=== PATIENT | female | born 2000 | race African-American/Black ===

== ENCOUNTER 2019-11-24 00:15 | Emergency (ER) | payer OTHER ==
[~2019-11-24] VITALS: Ht 162.6 cm; Wt 59.0 kg
[2019-11-24 00:40] VITALS: BP 123/74
[2019-11-24] MEDS ORDERED: predniSONE 10 MG TABLET PO ONE (01:00)
[2019-11-24] MEDS ORDERED: predniSONE 10 MG TABLET ONE (01:01)
[2019-11-24] MEDS ORDERED: PRED20TA PO (01:01)
--- NOTE | 2019-11-24 01:01 | PHYS DOC ---
Past History Past Medical History: No Pertinent History Past Surgical History: No Surgical History Smoking: Non-smoker Alcohol Use: None Drug Use: None Adult General Chief Complaint Chief Complaint: SKIN RASH/ABSCESS [facility] HPI 19-year-old female presents with 3 day history of intermittent papules that have been appearing on her body. They are not pruritic. She first noticed them 3 days ago and she has had an increasing number. On her bilateral upper extremities, back, abdomen, and hands. Patient denies any new exposures except for a new hair care product. No new furniture, pets, or reason for insect bites. She has no known allergies. She denies fever or chills Review of Systems Review of Systems Constitutional: Denies fever or chills [] Eyes: Denies change in visual acuity, redness, or eye pain [] HENT: Denies nasal congestion or sore throat [] Respiratory: Denies cough or shortness of breath [] Cardiovascular: No additional information not addressed in HPI [] GI: Denies abdominal pain, nausea, vomiting, bloody stools or diarrhea [] : Denies dysuria or hematuria [] Musculoskeletal: Denies back pain or joint pain [] Integument: Rash[] Neurologic: Denies headache, focal weakness or sensory changes [] Endocrine: Denies polyuria or polydipsia [] All other systems were reviewed and found to be within normal limits, except as documented in this note. Allergies Allergies Allergies Coded Allergies Type Severity Reaction Last Updated Verified No Known Drug Allergies 04/11/15 No Physical Exam Physical Exam Constitutional: Well developed, well nourished, no acute distress, non-toxic appearance. [] HENT: Normocephalic, atraumatic, bilateral external ears normal, oropharynx mo ist, no oral exudates, nose normal. [] Eyes: PERRLA, EOMI, conjunctiva normal, no discharge. [] Neck: Normal range of motion, no tenderness, supple, no stridor. [] Cardiovascular:Heart rate regular rhythm, no murmur [] Lungs & Thorax: Bilateral breath sounds clear to auscultation [] Abdomen: Bowel sounds normal, soft, no tenderness, no masses, no pulsatile masses. [] Skin: Scattered papules that look like small urticaria on the bilateral upper extremities, hands, upper back, and upper abdomen.[] Back: No tenderness, no CVA tenderness. [] Extremities: No tenderness, no cyanosis, no clubbing, ROM intact, no edema. [] Neurologic: Alert and oriented X 3, normal motor function, normal sensory fun ction, no focal deficits noted. [] Psychologic: Affect normal, judgement normal, mood normal. [] EKG EKG [] Radiology/Procedures Radiology/Procedures [] Course & Med Decision Making Course & Med Decision Making Pertinent Labs and Imaging studies reviewed. (See chart for details) Patient appears to be having allergic reaction. I will treat her with prednisone for 5 days. We will give the first dose in the ED. She can take Benadryl as needed for itching. She is stable for discharge at this time. [] Dragon Disclaimer Dragon Disclaimer This electronic medical record was generated, in whole or in part, using a voice recognition dictation system. Departure Departure: Impression: Primary Impression: Allergic reaction to chemical substance Disposition: HOME, SELF-CARE Condition: STABLE Referrals: PCP,UNKNOWN (PCP) Patient Instructions: Drug Allergy, [id number] Scripts Prednisone (PREDNISONE) 20 Mg Tablet 2 TAB PO DAILY for allergic reaction for 4 Days, #8 TAB Prov: DARIANA VARGAS DO 11/24/19 Problem Qualifiers Primary Impression: Allergic reaction to chemical substance Encounter type: initial encounter Injury intent: accidental or unintentional Qualified Codes: T65.91XA - Toxic effect of unspecified substance, accidental (unintentional), initial encounter DARIANA VARGAS DO Nov 24, 2019 01:01
== END 2019-11-24 01:25 | disposition home or self-care (01) ==
LOC: ER 00:15
DX: L25.8 Unspecified contact dermatitis due to other agents (principal); T50.905A Adverse effect of unspecified drugs, medicaments and biological substances, initial encounter; Y92.89 Other specified places as the place of occurrence of the external cause
CPT/HCPCS: 99283; J7512

== ENCOUNTER 2021-05-29 16:49 | Emergency (ER) | payer SELFPAY ==
[~2021-05-29] VITALS: Ht 165.1 cm; Wt 62.7 kg
[~2021-05-29 16:49] MED LIST: PRED20TA PO
[2021-05-29 17:22] VITALS: BP 129/65
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
== END 2021-05-29 19:15 | disposition home or self-care (01) ==
LOC: ER 16:49
DX: Z77.098 Contact with and (suspected) exposure to other hazardous, chiefly nonmedicinal, chemicals (principal)
CPT/HCPCS: 99283-25